=== PATIENT | female | born 1965 | race African-American/Black ===

== ENCOUNTER 2017-07-18 05:38 | Emergency (ER) | payer BC, SELFPAY ==
[2017-07-18] MEDS ORDERED: Ibuprofen 800 MG TAB ONE (06:12)
== END 2017-07-18 06:19 | disposition home or self-care (01) ==
LOC: NAV ERS 05:38
DX: S43.402A Unspecified sprain of left shoulder joint, initial encounter (principal); M79.605 Pain in left leg; I10 Essential (primary) hypertension; V40.5XXA Car driver injured in collision with pedestrian or animal in traffic accident, initial encounter; Z79.899 Other long term (current) drug therapy

== ENCOUNTER 2017-07-18 07:47 | Emergency (ER) | payer BC, OTHER ==
--- NOTE | 2017-07-18 08:52 | RAD ---
LEFT SHOULDER THREE VIEWS: History: Pain in left shoulder. Struck horse with car on the way to work. Comparison: None. FINDINGS: No acute fracture or malalignment. 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 Visualized ribs unremarkable. 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 No acute fracture or malalignment. POS: [facility]
== END 2017-07-18 09:02 | disposition home or self-care (01) ==
LOC: NAV ERS 07:47
DX: S46.912A Strain of unspecified muscle, fascia and tendon at shoulder and upper arm level, left arm, initial encounter (principal); I10 Essential (primary) hypertension; Z79.899 Other long term (current) drug therapy; V40.5XXA Car driver injured in collision with pedestrian or animal in traffic accident, initial encounter
CPT/HCPCS: 99284